=== PATIENT | male | born 1950 | race Caucasian/White ===

== ENCOUNTER 2023-01-10 12:24 | Inpatient (IN) | payer OTHER ==
[~2023-01-10] VITALS: Ht 170.2 cm; Wt 80.4 kg
[~2023-01-10 12:24] MED LIST: ACET-2080 PO; AMLO-257 PO; ASPI-1522 PO; ATOR10TA PO; GLIP10TA9 PO; METF-446 PO; NIAC500T76 PO; VALS80TA2 GT
[2023-01-10] MEDS ORDERED: BRIM155OS OU (12:47)
[2023-01-10] MEDS ORDERED: CLOP75TA60 PO (12:47)
[2023-01-10] MEDS ORDERED: EMPA10TA3 PO (12:47)
[2023-01-10] MEDS ORDERED: GABA-1216 PO (12:47)
[2023-01-10] MEDS ORDERED: LINA290C PO (12:47)
[2023-01-10] MEDS ORDERED: SACU1TAB PO (12:47)
[2023-01-10] MEDS ORDERED: PANT-31 PO (12:47)
[2023-01-10] MEDS ORDERED: TOBR5DRO63 OU (12:47)
[2023-01-10] MEDS ORDERED: CHOL25TA4 PO (12:47)
[2023-01-10] MEDS ORDERED: LEVE500T20 PO (12:47)
[2023-01-10] MEDS ORDERED: RANO500T27 PO (12:47)
[2023-01-10] MEDS ORDERED: POLY17PO47 PO (12:47)
[2023-01-10] MEDS ORDERED: LINA5TAB PO (12:47)
[2023-01-10] MEDS ORDERED: XALA2.5OS OU (12:47)
[2023-01-10] MEDS ORDERED: ASPIRIN 81 MG CHEWABLE TABLET PO ONE (13:15)
[2023-01-10 13:20] LABS: BASOPHILS % (AUTO) 0.4 % (0.0-2.0); EOSINOPHILS % (AUTO) 0.6 % (1.0-6.0); HEMATOCRIT 43.6 % (41-53); HEMOGLOBIN 14.3 g/dL (13.5-17.5); LYMPHOCYTES # (AUTO) 2.3 K/uL (1.0-4.8); LYMPHOCYTES % (AUTO) 25.3 % (22.0-44.0); MEAN CORPUSCULAR HEMOGLOBIN 30.6 pg (26.0-34.0); MEAN CORPUSCULAR HGB CONC 32.7 G/dL (31.0-37.0); MEAN CORPUSCULAR VOLUME 94 fL (80-100); MONOCYTES # (AUTO) 0.8 K/uL (0.1-1.0); MONOCYTES % (AUTO) 8.7 % (2.0-9.0); NEUTROPHILS # (AUTO) 5.8 K/uL (1.8-7.7); RED BLOOD CELL COUNT(AUTO) 4.67 MIL/uL (4.50-5.90); RED CELL DISTRIBUTION WIDTH 14.2 % (11.5-14.5)
[2023-01-10 13:24] LABS: PROTHROMBIN TIME 10.6 SEC (9.4-11.6)
[2023-01-10 13:27] LABS: CREATININE 1.43 mg/dL (0.60-1.30); POTASSIUM 4.3 mmol/L (3.5-5.1)
[2023-01-10 13:37] LABS: ALBUMIN 4.2 g/dL (3.4-5.0); BILIRUBIN,TOTAL 0.7 mg/dL (0.1-1.0); TOTAL PROTEIN, SERUM 7.1 g/dL (6.4-8.2)
[2023-01-10 13:39] LABS: PLATELET COUNT (AUTO) 233 K/uL (150-450)
[2023-01-10] MEDS ORDERED: ACETAMINOPHEN 325 MG TABLET PO PRN ×2 (13:45→15:00)
[2023-01-10] MEDS ORDERED: ONDANSETRON HCL 4 MG/2 ML VIAL IVP PRN ×2 (13:45→15:00)
[2023-01-10 14:49] LABS: COVID AG,FIA SOURCE NASOPHARYNGEAL
[2023-01-10] MEDS ORDERED: MORPHINE SULFATE 2 MG/ML SYRINGE IVP PRN (15:00)
[2023-01-10] MEDS ORDERED: HYDROCODONE/ACETAMINOPHEN 5-325 MG TABLET PO PRN (15:00)
[2023-01-10] MEDS ORDERED: ZOLPIDEM TARTRATE 5 MG TABLET PO PRN (15:00)
[2023-01-10] MEDS ORDERED: BISACODYL 10 MG RECTAL RECTAL SUPPOSITORY PR PRN (15:00)
[2023-01-10] MEDS ORDERED: MAGNESIUM HYDROXIDE SUSPENSION 30 ML UDCUP PO PRN (15:00)
[2023-01-10] MEDS: HEPARIN SODIUM,PORCINE 5,000 UNITS/ML VIAL SQ SCH ×2 (19:19→23:43)
[2023-01-10 20:23] VITALS: BP 134/78
[2023-01-10] MEDS: DOCUSATE SODIUM 100 MG CAPSULE PO SCH (21:29)
[2023-01-10] MEDS: ATORVASTATIN CALCIUM 20 MG TABLET PO SCH (21:29)
[2023-01-10] MEDS: SACUBITRIL/VALSARTAN 24-26 MG TABLET PO SCH (21:29)
[2023-01-10] MEDS: LevETIRAcetam 500 MG TABLET PO SCH (21:29)
[2023-01-10] MEDS: RANOLAZINE 500 MG ER TABLET PO SCH (21:29)
[2023-01-10 23:54] VITALS: BP 102/59
[2023-01-11 05:02] VITALS: BP 114/63
[2023-01-11 07:27] LABS: BASOPHILS % (AUTO) 0.2 % (0.0-2.0); EOSINOPHILS % (AUTO) 0.6 % (1.0-6.0); HEMATOCRIT 38.7 % (41-53); HEMOGLOBIN 13.2 g/dL (13.5-17.5); LYMPHOCYTES # (AUTO) 1.9 K/uL (1.0-4.8); LYMPHOCYTES % (AUTO) 27.6 % (22.0-44.0); MEAN CORPUSCULAR HEMOGLOBIN 31.2 pg (26.0-34.0); MEAN CORPUSCULAR HGB CONC 34.1 G/dL (31.0-37.0); MEAN CORPUSCULAR VOLUME 91 fL (80-100); MONOCYTES # (AUTO) 0.8 K/uL (0.1-1.0); MONOCYTES % (AUTO) 10.9 % (2.0-9.0); NEUTROPHILS # (AUTO) 4.2 K/uL (1.8-7.7); NEUTROPHILS % (AUTO) 60.7 % (40.0-70.0); PLATELET COUNT (AUTO) 234 K/uL (150-450); RED BLOOD CELL COUNT(AUTO) 4.24 MIL/uL (4.50-5.90); RED CELL DISTRIBUTION WIDTH 14.1 % (11.5-14.5)
[2023-01-11 08:03] LABS: CALCIUM, TOTAL 8.9 mg/dL (8.8-10.5); CHOL/HDL RATIO 2.6 (4.2-7.3); CREATININE 1.45 mg/dL (0.60-1.30); POTASSIUM 4.1 mmol/L (3.5-5.1); THYROID STIMULATING HORMONE 0.58 uIU/mL (0.36-3.74)
[2023-01-11 08:38] VITALS: BP 118/63
[2023-01-11] MEDS: LevETIRAcetam 500 MG TABLET PO SCH ×2 (08:52→21:41)
[2023-01-11] MEDS: SACUBITRIL/VALSARTAN 24-26 MG TABLET PO SCH ×2 (08:52→21:40)
[2023-01-11] MEDS: HEPARIN SODIUM,PORCINE 5,000 UNITS/ML VIAL SQ SCH ×3 (08:52→23:43)
[2023-01-11] MEDS: PANTOPRAZOLE SODIUM 40 MG DR TABLET PO SCH (08:53)
[2023-01-11] MEDS: ASPIRIN 81 MG DR TABLET PO SCH (08:53)
[2023-01-11] MEDS: RANOLAZINE 500 MG ER TABLET PO SCH ×2 (08:53→21:40)
[2023-01-11] MEDS: DOCUSATE SODIUM 100 MG CAPSULE PO SCH ×2 (08:53→21:41)
[2023-01-11] MEDS: CLOPIDOGREL BISULFATE 75 MG TABLET PO SCH (08:53)
[2023-01-11 11:26] VITALS: BP 121/77
[2023-01-11] MEDS ORDERED: DEXTROSE 50%-WATER 25 GM/50 ML SYRINGE IVP PRN (13:00)
[2023-01-11] MEDS: INSULIN LISPRO 100 UNITS/ML SQ PRN ×2 (14:12→20:35)
[2023-01-11 15:32] VITALS: BP 130/66
[2023-01-11 19:05] LABS: GLUCOMETER DEV NAME(LOC) 5N.2C; GLUCOSE,POINT OF CARE 126 MG/DL (70-110)
[2023-01-11 19:05] LABS: GLUCOMETER DEV NAME(LOC) 5N.2C; GLUCOSE,POINT OF CARE 227 MG/DL (70-110)
[2023-01-11 19:32] VITALS: BP 95/52
[2023-01-11] MEDS: ATORVASTATIN CALCIUM 20 MG TABLET PO SCH (21:41)
[2023-01-12 00:42] VITALS: BP 111/51
[2023-01-12 03:45] VITALS: BP 131/75
[2023-01-12] MEDS: INSULIN LISPRO 100 UNITS/ML SQ PRN ×2 (05:55→12:08)
[2023-01-12 06:30] LABS: BASOPHILS % (AUTO) 0.6 % (0.0-2.0); EOSINOPHILS % (AUTO) 1.2 % (1.0-6.0); HEMATOCRIT 38.9 % (41-53); HEMOGLOBIN 13.1 g/dL (13.5-17.5); LYMPHOCYTES # (AUTO) 1.8 K/uL (1.0-4.8); LYMPHOCYTES % (AUTO) 27.6 % (22.0-44.0); MEAN CORPUSCULAR HEMOGLOBIN 31.1 pg (26.0-34.0); MEAN CORPUSCULAR HGB CONC 33.6 G/dL (31.0-37.0); MEAN CORPUSCULAR VOLUME 92 fL (80-100); MONOCYTES # (AUTO) 0.9 K/uL (0.1-1.0); MONOCYTES % (AUTO) 14.3 % (2.0-9.0); NEUTROPHILS # (AUTO) 3.7 K/uL (1.8-7.7); NEUTROPHILS % (AUTO) 56.3 % (40.0-70.0); PLATELET COUNT (AUTO) 208 K/uL (150-450); RED BLOOD CELL COUNT(AUTO) 4.21 MIL/uL (4.50-5.90); RED CELL DISTRIBUTION WIDTH 14.2 % (11.5-14.5)
[2023-01-12 07:43] VITALS: BP 121/61
[2023-01-12] MEDS: ASPIRIN 81 MG DR TABLET PO SCH (08:06)
[2023-01-12] MEDS: DOCUSATE SODIUM 100 MG CAPSULE PO SCH (08:06)
[2023-01-12] MEDS: LevETIRAcetam 500 MG TABLET PO SCH (08:06)
[2023-01-12] MEDS: PANTOPRAZOLE SODIUM 40 MG DR TABLET PO SCH (08:06)
[2023-01-12] MEDS: CLOPIDOGREL BISULFATE 75 MG TABLET PO SCH (08:07)
[2023-01-12] MEDS: RANOLAZINE 500 MG ER TABLET PO SCH (08:07)
[2023-01-12] MEDS: SACUBITRIL/VALSARTAN 24-26 MG TABLET PO SCH (08:07)
[2023-01-12] MEDS: HEPARIN SODIUM,PORCINE 5,000 UNITS/ML VIAL SQ SCH (08:07)
[2023-01-12 08:31] LABS: GLUCOMETER DEV NAME(LOC) 5N.2C; GLUCOSE,POINT OF CARE 199 MG/DL (70-110)
[2023-01-12 12:17] VITALS: BP 119/69
[2023-01-12 15:51] LABS: GLUCOMETER DEV NAME(LOC) 5S.1B; GLUCOSE,POINT OF CARE 227 MG/DL (70-110)
== END 2023-01-12 14:35 | disposition home or self-care (01) | DRG 69 ==
LOC: EMS 12:33 → AHU 17:06 → 5S 19:01
PROVIDERS: ADMIT Internal Medicine; ATTEND Internal Medicine
DX: G45.9 Transient cerebral ischemic attack, unspecified (principal); E87.1 Hypo-osmolality and hyponatremia; I13.0 Hypertensive heart and chronic kidney disease with heart failure and stage 1 through stage 4 chronic kidney disease, or unspecified chronic kidney disease; R29.810 Facial weakness; E11.22 Type 2 diabetes mellitus with diabetic chronic kidney disease; G40.909 Epilepsy, unspecified, not intractable, without status epilepticus; E78.5 Hyperlipidemia, unspecified; N18.9 Chronic kidney disease, unspecified; I25.10 Atherosclerotic heart disease of native coronary artery without angina pectoris; Z95.5 Presence of coronary angioplasty implant and graft; I50.9 Heart failure, unspecified; Z20.822 Contact with and (suspected) exposure to COVID-19
CPT/HCPCS: 70496; 71045; 80048; 80053; 80061; 82962; 84443; 84484; 85025; 85610; 92526; 93005; 93306; 93880; 97116; 97162; 97530; 99291; J1644; Q9967; 36415-L1; 36415-TC; 70450; 70450-TC